=== PATIENT | female | born 2000 | race African-American/Black ===

== ENCOUNTER 2020-12-11 14:56 | Emergency (ER) | payer OTHER ==
[~2020-12-11] VITALS: Ht 172.7 cm; Wt 76.0 kg
[2020-12-11] MEDS ORDERED: PERM60CR4 TP (16:11)
[2020-12-11 16:30] VITALS: BP 121/87
== END 2020-12-11 17:02 | disposition home or self-care (01) ==
LOC: ER 14:56
DX: B86 Scabies (principal)
CPT/HCPCS: 99281; 99282